=== PATIENT | male | born 1940 | race Caucasian/White ===

== ENCOUNTER 2018-10-30 16:15 | Inpatient (IN) ==
[2018-10-30 16:39] LABS: EOS# 0.06 X1000 (0.0-0.7); EOS% 0.8 % (0.0-10.0); HEMATOCRIT 47.4 % (42.0-52.0); HEMOGLOBIN 15.9 g/dL (14.0-18.0); LYMPH# 0.42 X1000 (1.2-3.4); LYMPH% 5.4 % (20.5-51.1); MCH 32.4 PG (27-31); MCHC 33.5 g/dL (33-37); MCV 96.7 FL (81-99); MONO# 0.08 X1000 (0.11-0.59); MPV 10.6 FL (7.4-10.4); NEUT# 7.26 X1000 (1.4-6.5); NEUT% 92.8 % (42.2-75.2); PLT 114 X1000 (130-400); RDW 12.3 % (11.5-14.5); WBC 7.82 X1000 (4.8-10.8)
[2018-10-30 16:46] LABS: INR 0.96; PROTIME 13.5 Seconds (11.0-16.0); PTT 23.8 Seconds (22.3-41.8)
[2018-10-30] MEDS ORDERED: NS 1,000 ML IV ONE ×3 (16:49→16:51)
[2018-10-30 16:54] LABS: ALB/GLOB RATIO 2.4; ALBUMIN 4.8 g/dL (3.5-5.0); CALCIUM 9.5 mg/dL (8.8-10.2); CREATININE 1.2 mg/dL (0.7-1.2); POTASSIUM 4.5 mmol/L (3.5-5.1); TOTAL BILIRUBIN 1.68 mg/dL (0.20-1.00); TOTAL PROTEIN 6.8 g/dL (6.3-8.3)
[2018-10-30] MEDS ORDERED: ROCEPHIN 1 GM in NS 50 ML IV ONE (17:00)
[2018-10-30 17:07] LABS: ALLEN TEST YES; BE -1.9 mmoll (-3.0-3.0); BLOOD TYPE ARTERIAL; HCO3-(ACT) 23.4 mmoll (20.0-26.0); METHB 1.5 % (0.0-1.5); O2(CT) 19.9 mL/dL (15.0-23.0); O2HB 94.4 % (95.0-99.0); PCO2(98.6) 30 mmHg (35-45); PO2(98.6) 75 mmHg (60-100); SAMPLE BLOOD; SAO2 97.5 % (95.0-100.0); pH(98.6) 7.45 (7.35-7.45)
[2018-10-30 17:08] LABS: MODALITY CANNULA
--- NOTE | 2018-10-30 17:21 | Diag Imaging Result Doc PS360 ---
EXAM: CHEST-1 VIEW HISTORY: sob, possible sepsis TECHNIQUE: Chest single view COMPARISON: None. FINDINGS: The lungs are well expanded. The heart is mildly prominent although this is a portable upright exam. The vessels are not distended. Questionable medial right basilar infiltrate. No effusion identified. IMPRESSION: Questionable small right basilar infiltrate. Follow-up PA and lateral recommended Electronically signed by Chris lAex 10/30/2018 5:19 PM
[2018-10-30 17:32] LABS: URINE SOURCE CLEAN CATCH
[2018-10-30 17:45] LABS: BILIRUBIN URINE NEGATIVE (NEGATIVE); BLOOD URINE SMALL (NEGATIVE); COLOR YELLOW; GLUCOSE URINE NEGATIVE (NEGATIVE); KETONE URINE NEGATIVE (NEGATIVE); LEUKOCYTES URINE SMALL (NEGATIVE); NITRITE URINE NEGATIVE (NEGATIVE); PH URINE 5.5; PROTEIN URINE TRACE mg/dL (NEGATIVE); TURBIDITY URINE CLEAR (CLEAR); UROBILINOGEN URINE NORMAL (NORMAL)
[2018-10-30 17:46] LABS: UR EPITHELIAL CELLS <10 /HPF (<10); URINE BACTERIA NEGATIVE /HPF; URINE RBC <10 /HPF (<10); URINE WBC 20-40 /HPF (<10)
--- NOTE | 2018-10-30 18:03 | Diag Imaging Result Doc PS360 ---
EXAM: CT HEAD W/O CONTRAST HISTORY: ams syncope TECHNIQUE: CT head without contrast COMPARISON: None. FINDINGS: Motion degrades image quality. No parenchymal hemorrhage. No epidural or subdural hematoma. No subarachnoid hemorrhage. There is atrophy. No mass identified on this noncontrasted exam. No hydrocephalus. No sinus opacification. IMPRESSION: No hemorrhage. There is atrophy This exam was performed using automated exposure control, adjustment of mA or kV according to patient size, and/or use of iterative reconstruction technique. Electronically signed by Chris Alex 10/30/2018 6:01 PM
--- NOTE | 2018-10-30 18:25 | PROVIDER DOCUMENTATION ---
This chart was entered by Flavia Shah Scribe, acting as scribe for Rubén Haley MD. HPI-Respiratory General - General Chief Complaint: Weakness Stated Complaint: CHEST PAIN Time Seen by Provider: 10/30/18 16:43 Source: patient Allergies/Adverse Reactions: Patient Allergies Allergy/AdvReac Type Severity Reaction Status Date / Time No Known Allergies Allergy Verified 02/23/16 00:05 Home Medications: Home Medication List Medication Instructions Recorded Confirmed Last Taken Type ATORVAstatin [Lipitor] 10 mg PO QHS 02/23/16 02/23/16 02/21/16 21:00 History Darifenacin E.r. [Enablex] 7.5 mg PO QHS 02/23/16 02/23/16 02/21/16 21:00 History Potassium Citrate E.r. [Urocit-K] 10 meq PO QHS 02/23/16 02/23/16 02/21/16 21: 00 History Divalproex E.r. [Depakote ER] 1,000 mg PO QHS #60 tablet 03/15/16 Unknown Rx Hydrocortisone 2.5% Cream 1 applicatn LA BID PRN PRN #1 tube 03/15/16 Unknown Rx [Anusol-Hc Cream] Melatonin 5 mg PO QHS #30 tablet 03/15/16 Unknown Rx Risperidone [Risperdal] 1 mg PO QAM #30 tablet 03/15/16 Unknown Rx Risperidone [Risperdal] 6 mg PO QHS #60 tablet 03/15/16 Unknown Rx Trazodone [Desyrel] 50 mg PO QHS #30 tablet 03/15/16 Unknown Rx - History of Present Illness-Resp Nature of Presenting Problem: 78 yom presents to the ed with multiple complaints. pt sts was on a bus traveling today and felt well up till this afternoon. pt was riding on the bus when he became sob, weakness and tremors. pt has mild confusion on exam. pt is nontoxic in appearance the bus the pt was on dropped him off at the er and drove away Quality of Pain: reports: none (c/o weakness) Severity in ED: reports: moderate Onset/Duration: reports: this afternoon Timing: reports: still present Context: reports: other (was riding on a bus today) Exposure: reports: unknown cause Cough Quality/Degree: reports: no cough Episode Frequency: no prior episodes Current Respiratory Medication Therapy: Initiated see nurses note Modifying Factors: improves with: nothing Associated Symptoms: reports: fever/chills (102.3), shortness of breath, other ( weakness). denies: chest pain/soreness, cough, dizziness, headache Similar Symptoms Previously?: No Recently seen or treated by another doctor?: No Review of Systems - Adult - REVIEW OF SYSTEMS - ADULT Constitutional: reports: see HPI, chills, fever (102.3) Eyes: reports: no symptoms reported Ears, Nose, Mouth & Throat: reports: no symptoms reported Cardiovascular: denies: chest pain, palpitations Respiratory: reports: shortness of breath. denies: cough, wheezing Gastrointestinal: denies: abdominal pain, diarrhea, difficulty swallowing, nausea, vomiting Genitourinary: reports: no symptoms reported Musculoskeletal: reports: see HPI, muscle weakness. denies: back pain, neck pain Integumentary: reports: no symptoms reported Neurological: reports: see HPI, tremors, other (confused). denies: dizziness/ vertigo, headache/migraines, slurred speech Psychiatric: reports: no symptoms reported Endocrine: reports: no symptoms reported Hematologic/Lymphatic: reports: no symptoms reported Allergic/Immunologic: reports: no symptoms reported All Other Systems: Reviewed and Negative Past History - Adult - PAST MEDICAL HISTORY-ADULT Review of Records: reports: Old Records Reviewed, Nursing Assessment Review, Medications Reviewed, Social history reviewed & non-contributory. Major Childhood Illnesses: reports: denies history Cardiovascular: reports: denies history Respiratory: reports: denies history Gastrointestinal: reports: denies history Genitourinary: reports: denies history Musculoskeletal: reports: denies history Neurological: reports: denies history Endocrine/Immune: reports: denies history Other Conditions: reports: denies history - PRIOR SURGERIES/PROCEDURES Surgical/Procedure History: reports: reviewed, not pertinent - IMMUNIZATION STATUS Childhood Immunizations: See Nurse Assessment Flu Vaccine: See Nurse Assessment - FAMILY HISTORY Family History: reviewed, not pertinent - SOCIAL HISTORY Smoking: quit greater than 1 year Substance Use: none/never Alcohol Use Frequency: never Living Situation: family Physical Exam-General - PHYSICAL EXAM-ADULT Initial Vital Signs Reviewed: Yes - CONSTITUTIONAL General Appearance: lethargic, slow to respond - EYES Eyes: pink conjunctivae - HEAD, EARS, NOSE, MOUTH & THROAT HENMT: moist mucous membranes - NECK Neck: full range of motion - RESPIRATORY Respiratory: chest non-tender, lungs clear, normal breath sounds. negative: crackles, rales, rhonchi, stridor, wheezing - CARDIOVASCULAR Cardiovascular: normal peripheral pulses, regular rate, rhythm, no edema, tachycardia - GASTROINTESTINAL (ABDOMEN) Abdominal Exam: normal bowel sounds, non tender, soft, no organomegaly. negative: guarding, rigid, rebound, tenderness - LYMPHATIC Lymphatic: no adenopathy - MUSCULOSKELETAL Extremity: non-tender, no pedal edema. negative: normal gait Peripheral Pulses: radial (R): 2+, radial (L): 2+, dorsalis-pedis (R): 2+, dorsalis-pedis (L): 2+ - SKIN Integumentary: normal color, normal turgor, warm/dry - NEUROLOGIC Neurologic: grossly normal, no motor/sensory deficits, abnormal cerebellar tests , abnormal water plant pump operator II-XII, abnormal gait, negative romberg's sign. negative: facial droop, focal weakness, motor weakness, sensory deficit - PSYCHIATRIC Psych/Mental Status: normal mood/affect, normal thought content, normal thought process, oriented x 3 Progress - PLAN OF CARE/RESULTS Progress/Plan/Lab Results: Vital Signs - 8 hr 10/30/18 16:25 Temperature 102.3 F H Pulse Rate 107 H Respiratory Rate 20 Blood Pressure 132/55 O2 Sat by Pulse Oximetry 96 Laboratory Results - last 24 hr 10/30/18 10/30/18 10/30/18 16:28 16:28 16:28 WBC 7.82 RBC 4.90 Hgb 15.9 Hct 47.4 MCV 96.7 MCH 32.4 H MCHC 33.5 RDW Std Deviation 12.3 Plt Count 114 L MPV 10.6 H Immature Gran % (Auto) 0.0 Neut % (Auto) 92.8 H Lymph % (Auto) 5.4 L Bryan % (Auto) 1.0 L Eos % (Auto) 0.8 Baso % (Auto) 0.0 Immature Gran # (Auto) 0.00 Neut # (Auto) 7.26 H Lymph # (Auto) 0.42 L Bryan # (Auto) 0.08 L Eos # (Auto) 0.06 Baso # (Auto) 0.00 PT 13.5 INR 0.96 PTT (Actin FS) 23.8 Specimen Type Sample Site pH pCO2 pO2 HCO3 Base Excess Oxyhemoglobin ABG O2 Sat (Calculated) ABG O2 Saturation ABG Carboxyhemoglobin ABG Methemoglobin Robbie Test A-a O2 Difference Total Hemoglobin Lactate Liter Flow Blood Gas Modality FiO2 % Sodium 136 Potassium 4.5 Chloride 97 L Carbon Dioxide 24 L Anion Gap 15 BUN 19 Creatinine 1.2 Estimated GFR/1.73 m2 59 BUN/Creatinine Ratio 16 Glucose 136 H POC Glucose Calculated Osmolality 276 Calcium 9.5 Total Bilirubin 1.68 H AST 20 ALT 18 Alkaline Phosphatase 81 Creatine Kinase 97 Troponin T Total Protein 6.8 Albumin 4.8 Globulin 2.0 Albumin/Globulin Ratio 2.4 Plasma Lactate Urine Source Urine Color Urine Turbidity Urine pH Ur Specific [place] Urine Protein Ur Glucose (Stick) Ur Ketones (Stick) Urine Blood Urine Nitrite Urine Bilirubin Urobilinogen Dipstick Urine Leukocytes Urine WBC (Auto) Urine RBC (Auto) U Epithel Cells (Auto) Urine Bacteria (Auto) 10/30/18 10/30/18 10/30/18 16:28 16:28 16:55 WBC RBC Hgb Hct MCV MCH MCHC RDW Std Deviation Plt Count MPV Immature Gran % (Auto) Neut % (Auto) Lymph % (Auto) Bryan % (Auto) Eos % (Auto) Baso % (Auto) Immature Gran # (Auto) Neut # (Auto) Lymph # (Auto) Bryan # (Auto) Eos # (Auto) Baso # (Auto) PT INR PTT (Actin FS) Specimen Type ARTERIAL Sample Site R RADIAL pH 7.45 pCO2 30 L pO2 75 HCO3 23.4 Base Excess -1.9 Oxyhemoglobin 94.4 L ABG O2 Sat (Calculated) 19.9 ABG O2 Saturation 97.5 ABG Carboxyhemoglobin 1.80 ABG Methemoglobin 1.5 Robbie Test YES A-a O2 Difference 87.0 Total Hemoglobin 15.0 Lactate 2.90 H Liter Flow 2.0 Blood Gas Modality CANNULA FiO2 % 28.0 Sodium Potassium Chloride Carbon Dioxide Anion Gap BUN Creatinine Estimated GFR/1.73 m2 BUN/Creatinine Ratio Glucose POC Glucose Calculated Osmolality Calcium Total Bilirubin AST ALT Alkaline Phosphatase Creatine Kinase Troponin T < 0.010 Total Protein Albumin Globulin Albumin/Globulin Ratio Plasma Lactate 3.6 H Urine Source Urine Color Urine Turbidity Urine pH Ur Specific [place] Urine Protein Ur Glucose (Stick) Ur Ketones (Stick) Urine Blood Urine Nitrite Urine Bilirubin Urobilinogen Dipstick Urine Leukocytes Urine WBC (Auto) Urine RBC (Auto) U Epithel Cells (Auto) Urine Bacteria (Auto) 10/30/18 10/30/18 16:56 17:20 WBC RBC Hgb Hct MCV MCH MCHC RDW Std Deviation Plt Count MPV Immature Gran % (Auto) Neut % (Auto) Lymph % (Auto) Bryan % (Auto) Eos % (Auto) Baso % (Auto) Immature Gran # (Auto) Neut # (Auto) Lymph # (Auto) Bryan # (Auto) Eos # (Auto) Baso # (Auto) PT INR PTT (Actin FS) Specimen Type Sample Site pH pCO2 pO2 HCO3 Base Excess Oxyhemoglobin ABG O2 Sat (Calculated) ABG O2 Saturation ABG Carboxyhemoglobin ABG Methemoglobin Robbie Test A-a O2 Difference Total Hemoglobin Lactate Liter Flow Blood Gas Modality FiO2 % Sodium Potassium Chloride Carbon Dioxide Anion Gap BUN Creatinine Estimated GFR/1.73 m2 BUN/Creatinine Ratio Glucose POC Glucose 134 H Calculated Osmolality Calcium Total Bilirubin AST ALT Alkaline Phosphatase Creatine Kinase Troponin T Total Protein Albumin Globulin Albumin/Globulin Ratio Plasma Lactate Urine Source CLEAN CATCH Urine Color YELLOW Urine Turbidity CLEAR Urine pH 5.5 Ur Specific [place] 1.020 Urine Protein TRACE A Ur Glucose (Stick) NEGATIVE Ur Ketones (Stick) NEGATIVE Urine Blood SMALL A Urine Nitrite NEGATIVE Urine Bilirubin NEGATIVE Urobilinogen Dipstick NORMAL Urine Leukocytes SMALL A Urine WBC (Auto) 20-40 A Urine RBC (Auto) <10 U Epithel Cells (Auto) <10 Urine Bacteria (Auto) NEGATIVE Orders Category Date Time Status Cardiac Monitoring DIRECTED Care 10/30/18 16:28 Active IV Insertion ORDERED Care 10/30/18 16:28 Active Notify MD of + Sepsis Screen NOW Care 10/30/18 16:28 Active Notify Physician As Ordered Care 10/30/18 16:28 Active CHEST-1 VIEW [RAD] Stat Exams 10/30/18 16:[address] HEAD W/O CONTRAST [CT] Stat Exams 10/30/18 16:43 Completed ABG [RESP] Routine Lab 10/30/18 16:55 Completed BLOOD CULTURE [BLDCUL] Stat Lab 10/30/18 17:01 Results CBC WITH DIFF [HEME] Stat Lab 10/30/18 16:28 Completed CK PROFILE [SP CHEM] Stat Lab 10/30/18 16:28 Completed COMPREHENSIVE METABOLIC PANEL [CHEM] Stat Lab 10/30/18 16:28 Completed LACTATE, PLASMA [CHEM] Lab 10/30/18 19:30 Uncollected LACTATE, PLASMA [CHEM] Lab 10/30/18 22:30 Uncollected LACTATE, PLASMA [CHEM] Q3H Lab 10/30/18 16:28 Completed PROTIME WITH INR [COAG] Stat Lab 10/30/18 16:28 Completed PTT [COAG] Stat Lab 10/30/18 16:28 Completed TROPONIN T Stat Lab 10/30/18 16:28 Completed URINALYSIS W/POSS RFLX CULT [URINALYSIS] Stat Lab 10/30/18 17:20 Completed URINE CULTURE [RM] Routine Lab 10/30/18 18:09 Received 0.9% Sodium Chloride Inj [Ns] 1,000 ml Med 10/30/18 16:49 Discontinued IV 999 mls/hr 0.9% Sodium Chloride Inj [Ns] 1,000 ml Med 10/30/18 16:50 Discontinued IV 999 mls/hr 0.9% Sodium Chloride Inj [Ns] 1,000 ml Med 10/30/18 16:51 Discontinued IV 999 mls/hr CefTRIAXONE [Rocephin] 1 gm Med 10/30/18 17:00 Discontinued 0.9% Sodium Chloride Inj [Ns] 50 ml IV NOW Oxygen Device Stat Oth 10/30/18 16:28 Active Result Diagrams: 10/30/18 16:28 10/30/18 16:28 - REASSESSMENT Reassessment #1 Time Reassessed: 17:18 (dr at bedside) Status: unchanged - EKG 1 Time of EKG reading by physician:: 16:23 EKG Read and Signed by:: Rubén Haley EKG Interpretation (*Must complete 3 of following elements*): Normal (borderline ) Rate: 106 Rhythm: sinus tachycardia [place]: normal QRS: other (possible left atrial enlargement) LA Interval: normal ST Wave: normal - CONSULTS/PCP/HOSPITALIST Notification #1 *Consult/PCP/Hospitalist*: Dr wang Time Discussed: 18:00 Consult Disposition: Admit Departure - Departure Date of Disposition Decision: 10/30/18 Time of Disposition Decision: 18:22 DIAGNOSIS: Altered mental status Disposition: HOME 01 Certified Medical Emergency: Emergent Condition: Fair Referrals and Follow-Ups: Rubén Keating [Primary Care Provider] - - Critical Care Note This patient required my direct & personal management of CC.: Yes Total Time (mins): 42 Critical Care Statement: This patient required my direct personal management to treat or rule out processes, the absence of which, could potentiallly result in sudden, clinically significant life or limb threatening deterioration. Attestation - Physician/ FLOR Attestation Patient care was provided by Advanced Practice Provider:: No The physician spent face to face time with patient:: Yes Advanced Practice Provider documentation review:: Supervising physician onsite and consulted in the evaluation and care of this patient. The physician did have a face to face encounter with the patient. This chart was documented by the indicated scribe, (Flavia Shah Scribe) and accurately reflects the services I performed and decisions made by me, Rubén Haley MD, as attested by the provider's signature.
[2018-10-30] MEDS ORDERED: NS 500 ML ONE (18:54)
[2018-10-30] MEDS: ZITHROMAX 500 MG/NS 500 MG/250 ML IVPB IV SCH (19:00)
[2018-10-30] MEDS ORDERED: NS 500 ML IV ONE (19:03)
[2018-10-30] MEDS: DUONEB (A & A) INH SCH ×2 (19:15→23:55)
[2018-10-30] MEDS: TYLENOL PO PRN (21:00)
[2018-10-30] MEDS: NS 1,000 ML IV SCH (21:10)
[2018-10-31] MEDS: TYLENOL PO PRN ×2 (00:56→20:26)
--- NOTE | 2018-10-31 01:59 | HISTORY AND PHYSICAL ---
PRIMARY CARE PROVIDER: Juan Alberto Keating MD, in [place]. ARABIC PROFESSOR: Jt Sampson MD, in [place]. NEUROLOGIST: Jesus Nicholas M.D., in [place]. CHIEF COMPLAINT: Weakness, rigors, problems with expressing himself, shortness of breath, nausea. HISTORY OF PRESENT ILLNESS: Mr. Gupta is a 78-year-old male who carries a past medical history diagnosis of bipolar disorder, type 1, hypercholesterolemia, history of kidney stones, urinary incontinence, NM 2 years ago with a stent to the LAD, dementia. Per he was started on Namenda. He was started out at 5 mg over a month ago and increased to the max dose at 20. He has been on that dose for about 2 weeks. When I tried to question the patient on today's events it was hard for him to express himself and get his words out. He got slightly agitated, and what he was saying really did not make any sense. He became somewhat flustered. His took over and stated that they went on a bus tour to [facility] today in [place]. They listen to some lectures. They had a big lunch. They did minimal walking, and then when it was time ago he stated he needed to sit down. When they brought the tour bus around and he had to have help on the bus. He started staggering. He had chills and rigors. He felt like he "lost all control." He felt nauseated, and by the time he got to the ED he was totally in coherent. He was found to have a temperature of 102.3 degrees. He was tachycardic, respiratory rate in the 20s, and was found to have a lactate of 2.90, and then a serum lactate of 3.6. His urinalysis was negative. He had no white count. His head CT showed no hemorrhage, showed atrophy. Chest x-ray showed a questionable small right basilar infiltrate. Recommend followup PA and lateral. Per the patient all his symptoms had subsided except for not being able to fully express himself when placed under questioning, however, says when it is just her and family in the room he is able to converse with them normally and he is back to his old self. He does not usually get easily frustrated or able to express himself when being questioned. In the ED he was started on a sepsis protocol. He was given fluid boluses, started on IV antibiotics, checked blood cultures. Patient does not have a toxic appearance. We will go ahead and treat with antibiotics. Recheck a chest x-ray in the a.m., and given his symptoms of expression we will do a neurology consult. Get a brain MRI and follow up with normal CVA workup. REVIEW OF SYSTEMS: A 14 point review of systems was completely negative except for those mentioned in HPI. He denied chest pain. He denied vomiting, diarrhea. No headache. No dizziness. PAST MEDICAL HISTORY: 1. Dementia. 2. Bipolar disorder type 1. 3. Hypercholesterolemia. 4. History of kidney stones. 5. Urinary incontinence. 6. NM 2 years ago with a stent to the LAD and 100% blockage. PAST SURGICAL HISTORY: 1. Prostate surgery. 2. Heart cath to a stent to the LAD. It was 100% occluded. It was done by Dr. Sampson. 3. 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 4. Right foot surgery. SOCIAL HISTORY: He is . Supportive and family at bedside. 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 He is a [place] . He quit smoking over 50 years ago. No alcohol or illicit drugs. FAMILY HISTORY: Had a father of an NM at the age of 57. Mother of congestive heart failure the age of 89. She had Alzheimer dementia as well. ALLERGIES: No known drug allergies. HOME MEDICATIONS: Have not been reconciled. PHYSICAL EXAM: VITAL SIGNS: Temperature is 102.3 degrees, heart rate 107, respirations 20, blood pressure 132/55, O2 is 96% on room air. GENERAL: Mr. Gupta is a 78-year-old male who is lying on the stretcher in no acute distress. When asked questions he did become somewhat agitated that he could not get his words out, and when he did he did not make much sense, but when he was not directly being questioned and talking to his family he was able to speak appropriately. HEENT: Atraumatic, normocephalic. LARRY. NECK: Supple. Trachea midline. CV: S1, S2 appreciated. No murmurs, gallops, or rubs noted. No JVD. Bilateral pedal pulses are palpable. No lower extremity edema. GI: Soft, nontender, nondistended. Positive bowel sounds 4 quads. EXTREMITIES: No clubbing, no cyanosis. PULMONARY: Bilateral breath sounds clear to auscultation. NEURO: The patient was able to tell me his name, date of , the year, where he was at. He follows commands. Moved all extremities well. Smile was symmetrical. Tongue was midline. There was no deficit in his shoulder shrug. There was no pronator drift. Upper and lower extremity strength was 5/5. Did not assess gait. SKIN: Appears to be warm, dry and intact. DIAGNOSTIC DATA: Chest x-ray questionable small bibasilar infiltrate. Head CT no hemorrhage. There is atrophy. EKG is pending. LABORATORY DATA: White count 7, hemoglobin and hematocrit 15 and 47, platelet count is 114,000. Sodium 136, potassium 4.5, BUN 15, creatinine 1.2 blood glucose was 136, total bilirubin was 1.68, plasma lactate was 3.6. Urine was negative. ASSESSMENT AND PLAN: 1. Probable sepsis. The patient did have an elevated lactate, tachycardic, febrile, came in with complaints of rigors and weakness. He was treated with 3L of fluid boluses. The family felt like he improved after he received IV fluids and antibiotics. We will continue to trend his lactate, give him Tylenol for his fever, however, he does not have a toxic appearance. Chest x-ray shows questionable right basilar infiltrate. 2. Probable right basilar infiltrate. We will continue with IV fluids, IV antibiotics, bronchodilators, aggressive pulmonary toilet. Recheck a chest x-ray in the a.m. 3. Transient ischemic attack versus cerebrovascular accident versus altered mental status versus progressing or worsening of dementia versus toxic encephalopathy. The patient states that he felt like he lost all control and again he was having a hard time expressing himself, and when he would speak he stated it did not make logical sense. We will also get neurology involved, take a look at his home medications once they have been reconciled. Check the regular echocardiogram, carotid Dopplers, and brain MRI MRA in a.m. We will do frequent neuro checks. 4. Dementia history. We will continue his home medications when reconciled. 5. Bipolar disorder type 1. Continue home medications when reconciled. 6. Hypercholesterolemia. We will continue with statin. 7. History of kidney stones. Aware. 8. Urinary incontinence. 9. Myocardial infarction 2 years ago with a stent to the LAD. I will continue home medications again when they have been reconciled. Will continue with aspirin. 10. Further recommendations to follow laboratory data, physician evaluation, and diagnostic data. Dictated by BELKYS Espinoza for Wilfrid Acosta MD cc: MD Juan Alberto Figueroa, MD Jesus Nicholas I have seen and examined Mr Gupta today. was at bedside. I have also reviewed his labs and imagining studies. Mr Gupta presents with acute onset of febrile illness and AMS. Xray reports possible pneumonia. I agree with the above HPI and the plan reflects my opinion discussed with the SR. LOGISTICS ANALYST. ALEKSANDR
[2018-10-31] MEDS ORDERED: DEMEROL IV ONE ×2 (02:24→23:44)
[2018-10-31] MEDS ORDERED: TORADOL IV ONE ×2 (02:24→23:44)
[2018-10-31] MEDS: DUONEB (A & A) INH SCH ×6 (02:30→23:12)
[2018-10-31] MEDS: ZOFRAN IV PRN (02:34)
[2018-10-31 06:41] LABS: BASO# 0.01 X1000 (0.0-0.2); BASO% 0.1 % (0.0-0.8); EOS# 0.11 X1000 (0.0-0.7); EOS% 1.1 % (0.0-10.0); HEMATOCRIT 39.4 % (42.0-52.0); LYMPH# 0.34 X1000 (1.2-3.4); LYMPH% 3.3 % (20.5-51.1); MCH 32.7 PG (27-31); MONO# 0.66 X1000 (0.11-0.59); MONO% 6.5 % (1.7-9.3); MPV 11.2 FL (7.4-10.4); NEUT# 8.94 X1000 (1.4-6.5); PLT 89 X1000 (130-400); RBC 3.98 XMIL (4.7-6.1); RDW 12.5 % (11.5-14.5); WBC 10.16 X1000 (4.8-10.8)
--- NOTE | 2018-10-31 07:12 | Diag Imaging Result Doc PS360 ---
EXAM: CT THORAX/ABD/PELVIS W/CON 10/31/2018 HISTORY: infection TECHNIQUE: This exam was performed using automated exposure control, adjustment of mA or kV according to patient size, and/or use of iterative reconstruction technique. COMMENT: Thorax: There is hazy opacity in the perihilar portion of the right upper, and lower lobes. As there is no similar opacity on the left side this is likely to be due to an early or mild pneumonia. There is a small pleural-based nodule present in the right upper lobe on image 39 measuring less than 5 mm in diameter. Two additional tiny nodules are present at the level of the minor fissure anteriorly on image 55 which are probably nodes. There is a tiny nodule in the right lower lobe on image 65. There are atelectatic opacities present in the costophrenic sulci posteriorly bilaterally. There is a 5 mm nodule in the lingula on image 69 there is a somewhat groundglass nodule adjacent to the pleura in the superior segment of the left lower lobe on image 47 which measures less than 5 mm. There is a 5 mm sized nodule on image 43 in the superior segment of the left lower lobe. There is no evidence of significant adenopathy. There is dense calcification in the left coronary artery. There are no abnormal fluid collections. There is no evidence of aortic aneurysm or dissection. There are spondylotic changes in the visualized portion of the cervical spine as well as the thoracic spine. ABDOMEN: There are multiple calcified granulomata in the spleen and a few in the liver. There is no evidence of cholelithiasis. There may be a small stone in the lower pole of the right kidney. There are some small cortical cysts bilaterally. There is no evidence of hydronephrosis. The adrenal glands are not enlarged. The pancreas is unremarkable. There is some mesenteric panniculitis. There are a few prominent retroperitoneal nodes most notably at the level of the left renal pedicle there is a node measuring over 10 mm. There is no evidence of abdominal aortic aneurysm. The mesenteric and renal arteries are patent. The small bowel is not distended. There is stool throughout much of the colon. Pelvis: There is a densely calcified nodule adjacent to the cecum. The appendix is not clearly identifiable but there is no evidence of appendicitis. There is diverticulosis in the sigmoid colon without evidence of diverticulitis. The urinary bladder is not distended. There are fat-containing inguinal hernias bilaterally. The prostate gland is somewhat enlarged and inhomogeneous with a calcification near the prostatic urethra. It measures 5.6 cm transversely and 4.3 cm in AP dimension. There is no free fluid. There are degenerative disc changes in the lumbar spine. There is ankylosis of the sacroiliac joints. No evidence of acute bony abnormality is present. IMPRESSION: 1. Mild right upper and lower lobe pneumonia. Multiple nonspecific pulmonary nodules bilaterally none of which exceed 5 mm in size. Bibasilar atelectasis. 2. Mild constipation. Mild mesenteric panniculitis. Diverticulosis coli. 3. Enlarged prostate. No evidence of obstructive uropathy. The possibility of urinary tract infection cannot be excluded on the basis of this study. Electronically signed by Angel Laboy 10/31/2018 7:10 AM
--- NOTE | 2018-10-31 07:37 | EKG Report ---
Test Performed on : 10/30/2018 4:23:37 PM Test Reason : follow up Blood Pressure : / mmHG Vent. Rate : 106 BPM Atrial Rate : 106 BPM P-R Int : 166 ms QRS Dur : 072 ms QT Int : 330 ms P-R-T Axes : 041 031 057 degrees QTc Int : 438 ms Sinus tachycardia. Possible Left atrial enlargement Borderline ECG When compared with ECG of 22-JUN-2011 14:38, premature atrial complexes. are no longer present Vent. rate has increased BY 44 BPM Non-specific change in ST segment in Lateral leads Unconfirmed Result
[2018-10-31 07:42] LABS: MONO 4 % (1-9); SEGS 94 % (42-75)
[2018-10-31] MEDS: ASPIRIN PO SCH (09:28)
[2018-10-31] MEDS: VITAMIN B-12 PO SCH (09:28)
[2018-10-31] MEDS: NAMENDA PO SCH ×2 (09:29→20:26)
[2018-10-31] MEDS: ZEBETA PO SCH ×2 (09:29→09:41)
--- NOTE | 2018-10-31 10:35 | Diag Imaging Result Doc PS360 ---
EXAM: MRA BRAIN W/O CONTRAST 10/31/2018 HISTORY: stroke TECHNIQUE: 3-D [id number] COMMENT: Only the proximal portions of the anterior cerebral arteries are visible. There is some narrowing of the right A1 segment. The peripheral branches of the middle cerebral arteries are also not well demonstrated. 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 There is no evidence of aneurysm. IMPRESSION: Generally poor visualization of the peripheral branches of the middle cerebral arteries and distal anterior cerebral arteries. Hypoplasia of both P1 segments. Electronically signed by Angel Laboy 10/31/2018 10:32 AM
--- NOTE | 2018-10-31 10:38 | Diag Imaging Result Doc PS360 ---
EXAM: MRI BRAIN W/WO CONTRAST 10/31/2018 HISTORY: stroke TECHNIQUE: T1 sagittal, axial and post gadolinium-enhanced FSPGR axial with coronal reformation, axial T2, FLAIR, DWI and coronal gradient echo. COMMENT: There is some motion artifact particularly on the axial T1 images. There is no evidence of restricted diffusion. There is no evidence of mass effect, bleed, abnormal extra-axial fluid collection, or hydrocephalus. There is no evidence of abnormal gadolinium enhancement. No significant increased T2-weighted signal intensity is present. IMPRESSION: No evidence of acute intracranial disease. Electronically signed by Angel Laboy 10/31/2018 10:36 AM
--- NOTE | 2018-10-31 13:13 | PROGRESS NOTE ---
DATE: 10/31/2018 SUBJECTIVE: This morning, Mr. Gupta refers to be doing a lot better. He got admitted yesterday because of transient episode of altered mental status and fever. Brought in x- ray, did show suggestion of pneumonia. His blood cultures have been 2/2 positive for gram- negative kristy. OBJECTIVE: Vital signs: This morning blood pressure is 100/44, pulse is 80, respirations 18, temperature 97.6. General: Mr. Gupta is a 78-year-old, gentleman. He was in bed. Not seemingly distressed. HEENT: Mucosa is pink and moist. Anicteric. Acyanotic. Neck: Supple. Chest: Good air entry bilateral. There are some crepitations posteriorly. Cardiovascular: Regular rate and rhythm. No murmurs, no rubs, no gallops. Abdomen: Soft, nontender. Bowel sounds present. Extremities: No pedal edema. DIGITAL SOLUTION ARCHITECT: Patient was awake, alert, and oriented. LABORATORY DATA: WBC is 10.16, hemoglobin is 12.0 platelet count of 89. Chemistry is also reviewed. The patient's plasma lactate went down to 2.5. No chemistry this morning. So far, patient blood culture showing 2/2 gram-negative rods. DIAGNOSTIC STUDIES: A CT scan of the chest, abdomen, and pelvis yesterday did show mild right upper and lower lobe pneumonia. There was also mild constipation with mild mesenteric panniculitis. There is an enlarged prostate. No evidence of obstructive uropathy and possibility of urinary tract infection could not be excluded. ASSESSMENT AND PLAN: 1. Septic shock. The patient ran a couple episodes of hypotension, but his map has been relatively fine and his blood pressure this morning was okay. He has not needed pressors. He responded well to IV fluids. 2. Gram-negative kristy bacteremia, unsure the source not. We are not sure if this is from the pneumonia or is from urinary tract infection. Will be pending the Infectious disease and sensitivity. The patient has a remote history of plates in the right ankle which could be seeded from the bacteremia. I will consult Infectious disease to evaluate and determine length of therapy. 3. Right upper and lower lobe pneumonia. We will continue with the current azithromycin and Rocephin combo. 4. Mild constipation. We will continue with bowel regimen. 5. History of benign prostatic hypertrophy. No evidence of obstructive uropathy. The patient refers to have incontinence every now and then. There is a potential that the gram-negative kristy could be coming from the genitourinary tract. Urine culture is pending. We will follow up accordingly. cc: Wilfrid Acosta MD MTDD
--- NOTE | 2018-10-31 13:41 | CONSULTATION ---
DATE OF CONSULTATION: 10/31/2018 HISTORY OF PRESENT ILLNESS: Mr. Gupta had some possible trouble finding his words associated with shaking approximately 24 hours ago. He seems completely recovered now. History from the patient is that he was on a bus tour, felt ill, fatigued, weak all over. He developed some generalized shaking with teeth clenched. He sat on the bus and later seemed to have difficulty standing. was next to him and spoke to him, and he did not answer. She had the impression that he either could not or would not talk. Mr. Gupta remembers some of this, but may not have complete memory of all events. There was never any focal neurologic feature. There was never unconsciousness or unresponsiveness. He did not have headache. He did not fall. He reports no prior similar episode. He had a prior period of generalized shaking and possible parkinsonian syndrome, which resolved after medication adjustments. He is followed by Dr. Nicholas in [place]. DIAGNOSTIC AND LABORATORY DATA: Initial noncontrast CT, later brain MRI with and without contrast, and brain MRA, all unremarkable. Lab showed mild anemia and mildly elevated blood sugars. Blood cultures are positive. PHYSICAL EXAMINATION: Temperature was 102.3 degrees, later 103.3 ( approximately 10 hours ago), and he is afebrile now. On exam, he is awake, alert, attentive, appropriate, oriented, reasonably cheerful. Speech is not dysarthric. Language function is intact on bedside testing. He did not have any word-finding problems during my time at the bedside. I did not test his cognitive function further. Head and neck are unremarkable. There is no meningismus. Visual rivera are full tested grossly by confrontational finger counting. Extraocular movements are full. Facial motility is symmetric. Tongue is midline. Palate is midline. Hearing is good. Shoulder shrug is equal. Strength is normal in the arms and legs. Tone is symmetric in the limbs. I did not test his gait. Reflexes are 1+ at the wrists and ankles symmetrically. Plantar response is silent bilaterally. He reports diminished pinprick appreciation over the right upper leg compared to the left without typical peripheral nerve distribution. He reports equal pinprick appreciation over the right and left palm. IMPRESSION: His history to me sounds like rigor with hard shaking chills, subsequent fever, now recovering. There was never clear focal neurologic feature. History is not certain for language problem. We discussed LP but I don't think that is necessary in light of his recovery to baseline. At this point, I do not think we need to do anything further from neurologic standpoint. After discharge, he will keep followup with Dr. Nicholas. Thanks for asking Neurology to see Mr. Gupta. cc: MD ALEKSANDR Somers III
--- NOTE | 2018-10-31 17:12 | ECHO REPORT ---
ORDER DATE: 10/30/2018 INDICATION FOR PROCEDURE: TIA, stroke, rigors, dyspnea. M-MODE MEASUREMENTS: Left ventricle end diastole: 4.8. Left ventricle end systole: 3.7. Posterior wall: 0.9. Interventricular septum: 1.0. Left atrium: 4.0. Aortic root: 3.2. SUMMARY OF 2-DIMENSIONAL IMAGIN. The study is difficult. 2. Left ventricular function is normal. Ejection fraction estimated at 60%. No wall motion abnormality noted. 3. The right ventricle appears to be normal. 4. The aortic valve looks grossly normal. Color flow mapping unremarkable. 5. The pulmonic valve looks grossly normal. Color flow mapping unremarkable. 6. The tricuspid valve shows a minimal degree of regurgitation. 7. Pulmonary pressure normal, estimated at 22 to 27 mmHg. 8. The mitral valve looks normal with a mild degrees of regurgitation. 9. Pulsed wave Doppler of mitral inflow is normal. 10.Tissue Doppler of septal and lateral mitral annulus averages 9 cm. There is no diastolic dysfunction. 11.There is no pericardial effusion. No masses, no thrombus. 12.The atria did not appear to be dilated. SUMMARY: This echocardiographic study appears to be grossly within normal limits. cc: Lalo Salmeron MD
[2018-10-31] MEDS ORDERED: ROCEPHIN 1 GM in NS 50 ML IV SCH (18:30)
[2018-10-31] MEDS: ZITHROMAX 500 MG/NS 500 MG/250 ML IVPB IV SCH (20:26)
[2018-10-31] MEDS: LIPITOR PO SCH (20:26)
[2018-10-31] MEDS: NS 1,000 ML IV SCH (20:26)
[2018-10-31] MEDS: COENZYME Q10 PO SCH (20:26)
[2018-10-31] MEDS: PATIENT'S OWN MED PO SCH (20:27)
[2018-11-01] MEDS: TYLENOL PO PRN ×3 (00:03→21:26)
[2018-11-01] MEDS: ZOFRAN IV PRN (00:04)
[2018-11-01] MEDS: DUONEB (A & A) INH SCH ×6 (03:12→23:02)
[2018-11-01] MEDS: ZEBETA PO SCH ×2 (03:40→08:17)
[2018-11-01] MEDS: NS 1,000 ML IV SCH (03:41)
[2018-11-01] MEDS ORDERED: DEMEROL IV ONE (04:32)
[2018-11-01 04:54] LABS: BASO# 0.01 X1000 (0.0-0.2); BASO% 0.2 % (0.0-0.8); EOS# 0.01 X1000 (0.0-0.7); EOS% 0.2 % (0.0-10.0); HEMATOCRIT 39.9 % (42.0-52.0); HEMOGLOBIN 13.5 g/dL (14.0-18.0); IMM GRAN# 0.02 X1000 (0.0-0.04); IMM GRAN% 0.4 % (0.0-0.5); LYMPH# 0.43 X1000 (1.2-3.4); LYMPH% 9.3 % (20.5-51.1); MCH 32.9 PG (27-31); MCHC 33.8 g/dL (33-37); MCV 97.3 FL (81-99); MONO# 0.08 X1000 (0.11-0.59); MONO% 1.7 % (1.7-9.3); MPV 10.9 FL (7.4-10.4); NEUT# 4.08 X1000 (1.4-6.5); NEUT% 88.2 % (42.2-75.2); PLT 64 X1000 (130-400); RDW 12.7 % (11.5-14.5); WBC 4.63 X1000 (4.8-10.8)
[2018-11-01 05:21] LABS: CALCIUM 8.7 mg/dL (8.8-10.2); CREATININE 1.2 mg/dL (0.7-1.2); MAGNESIUM 1.6 mg/dL (1.5-2.7); POTASSIUM 4.4 mmol/L (3.5-5.1)
[2018-11-01 06:21] LABS: INR 1.11; PROTIME 15.2 Seconds (11.0-16.0)
[2018-11-01 06:26] LABS: IRON SATURATION 9 %; TIBC 173 ug/dL; TOTAL IRON 15 ug/dL (53-167); UNBOUND IRON 158 ug/dL (112-346)
[2018-11-01 06:56] LABS: FERRITIN 471 ng/mL (30-400)
--- NOTE | 2018-11-01 08:05 | Diag Imaging Result Doc PS360 ---
EXAM: CHEST-1 VIEW 11/01/2018 HISTORY: sepsis protocol TECHNIQUE: AP portable at 0743 COMMENT: The inspiration is slightly less optimal than on 10/30/2018 but otherwise the appearance the chest has not changed significantly. The possibility of mild subsegmental atelectasis particularly in the left lower lobe cannot be excluded. IMPRESSION: Subsegmental atelectasis. Electronically signed by Angel Laboy 11/01/2018 8:03 AM
[2018-11-01 08:12] LABS: INR 1.14; PROTIME 15.5 Seconds (11.0-16.0)
[2018-11-01 08:13] LABS: PTT 35.7 Seconds (22.3-41.8)
[2018-11-01] MEDS: NAMENDA PO SCH ×2 (08:16→21:24)
[2018-11-01] MEDS: ASPIRIN PO SCH (08:16)
[2018-11-01] MEDS: VITAMIN B-12 PO SCH (08:16)
[2018-11-01 08:21] LABS: AGAP 14; ALB/GLOB RATIO 1.8; ALBUMIN 3.3 g/dL (3.5-5.0); ALKALINE PHOSPHATASE 54 U/L (32-122); BUN 27 mg/dL (8-22); CALCIUM 8.2 mg/dL (8.8-10.2); CHLORIDE 103 mmol/L (98-107); COSMO 278; CREATININE 1.1 mg/dL (0.7-1.2); ESTIMATED GFR > 60; GLUCOSE 156 mg/dL (70-104); GOT 30 U/L (10-34); GPT 11 U/L (10-44); POTASSIUM 4.2 mmol/L (3.5-5.1); SODIUM 135 mmol/L (136-145); TCO2 18 mmol/L (25-35); TOTAL BILIRUBIN 0.77 mg/dL (0.20-1.00); TOTAL PROTEIN 5.1 g/dL (6.3-8.3)
[2018-11-01 08:41] LABS: URINE SOURCE CLEAN CATCH
[2018-11-01 08:47] LABS: BILIRUBIN URINE NEGATIVE (NEGATIVE); BLOOD URINE MODERATE (NEGATIVE); COLOR YELLOW; GLUCOSE URINE NEGATIVE (NEGATIVE); KETONE URINE NEGATIVE (NEGATIVE); LEUKOCYTES URINE TRACE (NEGATIVE); NITRITE URINE NEGATIVE (NEGATIVE); PH URINE 5.5; PROTEIN URINE 100 mg/dL (NEGATIVE); SP GRAVITY URINE 1.034; TURBIDITY URINE HAZY (CLEAR); UR EPITHELIAL CELLS <10 /HPF (<10); URINE BACTERIA NEGATIVE /HPF; UROBILINOGEN URINE NORMAL (NORMAL)
--- NOTE | 2018-11-01 09:10 | EKG Report ---
Test Performed on : 11/01/2018 09:00:30 AM Test Reason : CP Blood Pressure : / mmHG Vent. Rate : 092 BPM Atrial Rate : 092 BPM P-R Int : 172 ms QRS Dur : 072 ms QT Int : 344 ms P-R-T Axes : 034 -05 031 degrees QTc Int : 425 ms Sinus rhythm. with frequent premature ventricular complexes. Cannot rule out Anteroseptal infarct , age undetermined Abnormal ECG When compared with ECG of 30-OCT-2018 16:23, (Unconfirmed) premature ventricular complexes. are now present Confirmed by Jenna GILL, Jm Alfred ([id number]) on 11/01/2018 7:42:39 PM
--- NOTE | 2018-11-01 09:30 | INFECTIOUS DISEASE CONSULT REP ---
DATE: 11/01/2018 CONCLUSION: The patient has a gram-negative kristy urinary tract infection, which I think is associated with the patient's gram-negative kristy bacteremia. In addition on CT scan, the patient appears to have a pneumonia, which I think most likely is hematogenous in nature from the patient's bacteremia. Also, the patient has metal in his right ankle from a fracture he suffered and the right ankle may have become infected hematogenously also. The patient in 1 of 2 blood cultures has a gram-positive coccus. I think most likely this will turner in to be a contaminant due to staph such as Staph epidermidis, but I cannot rule out for sure that it would not be a pathogen such as Staph aureus. The patient's gram-negative kristy bacteremia also hematogenously could involve the patient's right ankle that has metal in it. RECOMMENDATIONS: I am going to discontinue the current antibiotics and go ahead and put the patient on cefepime. Also, since the patient has a gram-positive coccus in 1 of his blood cultures, I will go ahead and put the patient on daptomycin as well. DISCUSSION: The patient in the past 2 days has had shaking chills and fever. He also had decreased urine output. His blood cultures show gram-negative kristy in both sets and one set had a gram-positive coccus. The patient's urine also is growing a gram-negative kristy. The patient's CBC shows a white count of 4630, hemoglobin 13.5, and platelet count 64,000. Creatinine is 1.1 and GFR is greater than 60. Liver function studies are normal. CT scan of the chest shows the presence of pneumonia and CT scan of the abdomen and pelvis shows an enlarged prostate. PAST MEDICAL HISTORY/REVIEW OF SYSTEMS: Eyes and Ears: The patient has decreased hearing. His vision is okay. Neck: No stiffness. Respiratory: No cough or dyspnea. Cardiac: No chest pain or palpitations. Gastrointestinal: No nausea, vomiting, or diarrhea. Genitourinary: As mentioned above, the patient had decrease in his urine output, but he did not complain of dysuria or flank pain. Endocrine: The patient does not have diabetes or thyroid disease. Bones, joints, muscles: The patient does not have any swollen joints or muscle aches currently. PREVIOUS HOSPITALIZATIONS AND OPERATIONS: He has had admissions for myocardial infarction. He has had a right ankle fracture, which was surgically treated and he has a metal plate in place. 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 He has also had shrapnel wounds in his chest. MEDICAL DISEASES: Positive for benign prostatic hypertrophy and renal calculi. INFECTIOUS DISEASE HISTORY: Negative for pneumonia and UTI. FAMILY HISTORY: Positive for diabetes mellitus, hypertension, and myocardial infarction. SOCIAL HISTORY: [place] He is . He has a dog as a pet. He is retired. He was a public service officer. He does not smoke cigarettes, drink alcoholic beverages, or abuse drugs. PHYSICAL EXAMINATION: Vital Signs: Temperature 99.2 degrees, pulse 82, respirations 12, blood pressure 101/53. General: This is a obese, but otherwise fairly healthy-appearing, elderly male. He is in no acute distress. Head, eyes, ears, nose, and throat: He can hear my spoken words and see near objects. He does not have any white coating on his tongue. Neck: No meningismus. Lungs: Clear to auscultation. Cardiovascular: Regular heart rate. Abdomen and Flanks: Soft and nontender. Neurologic: The patient is alert. He can move his extremities. There is no tremor. His sensation is intact to touch. His memory as regarding his medical history is intact. Integument: No rash noted. Thank you for the consult. cc: [place] MD
[2018-11-01 09:52] LABS: CK INDEX 1.4 (0.0-2.5); CK-MB 6.37 ng/mL (0.0-5.0)
[2018-11-01] MEDS: CUBICIN 500 MG in NS 100 ML IV SCH (09:58)
--- NOTE | 2018-11-01 10:22 | Carotid Study ---
DATE: 10/30/2018 PROCEDURE: Bilateral duplex and color flow imaging of the carotid arteries performed using a GE Vivid E9 ultrasound system with a 9L-D transducer. REFERRING PHYSICIAN: Dr. Wayne. INTERPRETING PHYSICIAN: Raina Shah MD. TECH: Yanick Gillis Tima. INDICATIONS: Transient ischemic attack. OBSERVED DATA RIGHT LEFT Brachial Blood Pressure Carotid Pulse Bruits: Carotid/Sub DIAGRAM OF ULTRASOUND IMAGING R L RIGHT INT EXT INT EXT LEFT Dominick (cm/s) Dominick (cm/s) Subclavian 150/0 Subclavian 97/0 CCA Proximal 103/14 CCA Proximal 92/15 CCA Distal 73/11 CCA Distal 88/12 Bulb 70/11 Bulb 80/13 ICA Proximal 52/8 ICA Proximal 67/20 ICA Mid 70/18 ICA Mid 65/15 ICA Distal 60/17 ICA Distal 67/19 ECA 109/0 ECA 85/7 Vertebral 57/10 Vertebral 44/6 ICA/CCA Ratio 0.67 ICA/CCA Ratio 0.73 % Stenosis 0-39 % Stenosis 0-39 PHYSICIAN INTERPRETATION: Mild atherosclerotic disease at the distal common and internal carotid arteries bilaterally without evidence of a hemodynamically significant lesion in either carotid system. cc: Raina Shah MD
--- NOTE | 2018-11-01 13:24 | PROGRESS NOTE ---
DATE: 11/01/2018 SUBJECTIVE: Mr. Gupta reports some hard shaking chills overnight associated with temperature elevation. During the time, he was miserable and had a sense that he could not speak fluently. Overall, that seems to be very similar to what happened on the bus prior to admission. There was not clear focal neurologic feature. There was not a definite language deficit. There was no altered consciousness or altered awareness. OBJECTIVE: Neurologically, he continues to be intact. ASSESSMENT AND PLAN: I do not think with have to do anything further from neurologic standpoint. I am optimistic that he will feel better with continued treatment for his bacteremia. He will have Neurology followup with Dr. Nicholas in [place] after discharge. Thanks for asking Neurology to see Mr. Gupta. cc: Vannessa Tate III, MD [facility]
[2018-11-01] MEDS: LEVAQUIN 500 MG/D5W 500 MG/100 ML IVPB IV SCH (16:34)
--- NOTE | 2018-11-01 20:44 | PROGRESS NOTE ---
DATE: 11/01/2018 SUBJECTIVE: This morning Mr. Gupta refers to be doing a lot better. However, he did say he had an episode of chills, fever yesterday. He also did have an episode where he became urinary retained, so he had to be in and out cath and he did pass urine stones yesterday. This morning, however, he refers to be doing okay. He has been able to void on his own twice and he has been able to empty his bowels. OBJECTIVE: Vital Signs: Blood pressure is 121/64, pulse is 81, respirations 20 , temperature 99.3, patient has a T-max of 102.5 this morning at 0429. General: Mr. Gupta is a 78-year-old gentleman. He is in bed. He was not in any cardiopulmonary distress. HEENT: Mucosa is pink and moist. Anicteric. Acyanotic. Neck: Supple. Chest: Good air entry bilaterally. There were no crepitations, no rhonchi. Cardiovascular: Regular rate and rhythm. No murmurs, no rubs, no gallops. Gastrointestinal: Abdomen was soft, distended, but nontender. Bowel sounds are present. There was no hepatosplenomegaly and there was no CVA tenderness. Extremities: No pedal edema. Distal pulses present. Central Nervous System: Patient was awake , alert, oriented. There is no focal neurological deficit. LABORATORY DATA: WBC is 4.62, hemoglobin is 13.5, platelet count went down to 64,000. Fibrinogen is up to 116. Chemistry has been reviewed. Sodium is 135, potassium is 4.2, chloride is 100, bicarb is 18, BUN was 27. Troponin has gone up to 0.340. An EKG which was done this morning did show normal sinus rhythm with a rate of about 92, some occasional PVCs, but no ST segment abnormalities. The patient denies any chest pain. The urine culture has come back to be Citrobacter koseri, which is pansensitive. The blood culture #1 is gram-negative kristy. The other one which was initially reported as gram-negative kristy has now been reported as gram-positive cocci. ASSESSMENT: 1. Septic shock. The patient responded to IV fluids. No need for pressors. He is currently on IV antibiotics. 2. Gram-negative bacteremia. This was 2/2 yesterday this morning. One of the blood cultures has been reported as gram-positive cocci. We are still waiting on the ID and sensitivity. 3. Right upper lobe pneumonia. Patient's antibiotics have been changed to Levaquin and daptomycin hopefully for the bacteremia of the gram-positive cocci. 4. Mild constipation, improved. 5. History of benign prostatic hypertrophy. No obstructive uropathy seen on imaging studies. We will start the patient on Flomax. 6. Kidney stones. The patient has passed two of these. They were sent for pathology. We are still awaiting for the stone analysis. 7. Elevated troponin. The patient is asymptomatic of any chest pain and EKGs were also unremarkable. We are going to trend this and repeat his EKG. Please also refer to the other details of progress note from the medical student. cc: Wilfrid Acosta MD MTDD
[2018-11-01] MEDS: LIPITOR PO SCH (21:24)
[2018-11-01] MEDS: COENZYME Q10 PO SCH (21:24)
[2018-11-01] MEDS: PATIENT'S OWN MED PO SCH (21:27)
[2018-11-02] MEDS: NS 1,000 ML IV SCH ×3 (02:15→15:46)
[2018-11-02] MEDS: DUONEB (A & A) INH SCH ×6 (03:02→23:00)
[2018-11-02 06:00] LABS: EOS% 1.6 % (0.0-10.0); HEMATOCRIT 38.3 % (42.0-52.0); HEMOGLOBIN 12.9 g/dL (14.0-18.0); LYMPH# 0.34 X1000 (1.2-3.4); LYMPH% 5.6 % (20.5-51.1); MCH 32.4 PG (27-31); MCHC 33.7 g/dL (33-37); MCV 96.2 FL (81-99); MONO# 0.49 X1000 (0.11-0.59); MPV 11.1 FL (7.4-10.4); NEUT# 5.19 X1000 (1.4-6.5); NEUT% 84.8 % (42.2-75.2); PLT 71 X1000 (130-400); RBC 3.98 XMIL (4.7-6.1); RDW 12.5 % (11.5-14.5); WBC 6.12 X1000 (4.8-10.8)
[2018-11-02 06:19] LABS: AGAP 10; BUN 16 mg/dL (8-22); CALCIUM 8.4 mg/dL (8.8-10.2); CHLORIDE 105 mmol/L (98-107); COSMO 279; CREATININE 0.9 mg/dL (0.7-1.2); ESTIMATED GFR > 60; GLUCOSE 128 mg/dL (70-104); MAGNESIUM 1.7 mg/dL (1.5-2.7); POTASSIUM 4.4 mmol/L (3.5-5.1); SODIUM 138 mmol/L (136-145); TCO2 23 mmol/L (25-35)
[2018-11-02] MEDS: VITAMIN B-12 PO SCH (09:26)
[2018-11-02] MEDS: ZEBETA PO SCH (09:27)
[2018-11-02] MEDS: NAMENDA PO SCH ×2 (09:27→20:32)
[2018-11-02] MEDS: ASPIRIN PO SCH (09:27)
[2018-11-02] MEDS: CUBICIN 500 MG in NS 100 ML IV SCH (09:28)
--- NOTE | 2018-11-02 11:07 | INFECTIOUS DISEASE PROGRESS NO ---
DATE: 11/02/2018 PRESENT ILLNESS: Mr. Gupta has a Citrobacter koseri urinary tract infection with an associated bacteremia. Also noted on CT scan, is a mild, right-sided pneumonia. MEDICATIONS: He is receiving Levaquin 500 mg IV daily. He has also been on daptomycin 500 mg IV daily for a possible gram-positive coccus; however, this has been discontinued because the gram- positive coccus notation was incorrect and it was a gram-negative kristy. PHYSICAL EXAMINATION: Vital signs: Temp is 98.7, pulse rate 79, respiratory rate 20, blood pressure 132/64. O2 sat is 95% on room air. General: This is a chronically- ill appearing, elderly gentleman. He is lying in the bed in no acute distress. HEENT: Atraumatic, normocephalic. Oral mucous membranes are pink and moist. Conjunctivae are pink. Neck: Supple. Trachea is midline. Respiratory: Lung sounds are generally clear and diminished bilaterally. Cardiovascular: Heart rate and rhythm is irregular, underlying sinus rhythm with frequent ectopic beats. Pedal and radial pulses are +2 bilaterally. He does have a 1+ pretibial edema bilaterally. Abdomen: Soft, obese, and nontender. Bowel sounds are active. Neurologic: He is awake , alert, and oriented, able to ambulate with some mild weakness. LABORATORY AND X-RAY: Today's white count is 6.12, hemoglobin 12.9, platelet count 71,000. Creatinine is 0.9. Estimated GFR is greater than 60. His most recent urine culture has shown no growth on the preliminary report. Previous urine and blood cultures have grown a Citrobacter koseri. No imaging reports today. ASSESSMENT AND PLAN: Mr. Gupta has a Citrobacter koseri urinary tract infection with an associated bacteremia. There is also a mild right-sided pneumonia. At one point , there was what looked like a gram-positive coccus that was growing. However, that turned out to be a gram- negative kristy, so we have discontinued the daptomycin. The patient is feeling a lot better today on the Levaquin, which we will continue at this point. I have called and spoken to the orthopedic center in [place], where he previously had his right ankle surgery, and they have assured me that there is no metal in his ankle at this point. Since there are no other implants or metal, he will only need 2 weeks of treatment for his bacteremia. Day one will be the first day of negative blood cultures which we will go ahead and draw in the morning. These plans have been discussed with and recommended by Dr. Arce. COMORBIDITIES: Comorbidities for Mr. Gupta include he is elderly with BPH and renal calculi, bipolar disorder, dementia, and coronary artery disease. Dictated by BELKYS Almaguer for South Arce MD This chart was documented by, BELKYS Almaguer and accurately reflects the services performed, treatment plan and medical decisions as attested by the providers signature South Arce MD. cc: South Arce MD MTDD
[2018-11-02] MEDS: LEVAQUIN 500 MG/D5W 500 MG/100 ML IVPB IV SCH (15:41)
--- NOTE | 2018-11-02 17:47 | PROGRESS NOTE ---
DATE: 11/02/2018 SUBJECTIVE: This morning, Mr. Gupta refers to be doing a whole lot better. No more chills. No fever. No chest pain. No abdominal pain and he has not passed any more urinary stones. OBJECTIVE: Vital signs: Blood pressure is 128/72, pulse is 71 respiration is 20, temperature is 98.4 degrees. Patient's T-max 99.3 degrees. General Exam: Mr. Gupta is 78-year-old male. He is in bed. He is not in any cardiopulmonary distress. HEENT: Mucosa was pink and moist. Anicteric. Acyanotic. Neck: Supple. Chest: Good air entry bilateral. There are no crepitations. No rhonchi. Cardiovascular: Regular rate and rhythm. There are no murmurs, no rubs, no gallops. Abdomen: Soft. Distended, but nontender. Bowel sounds present. There is no hepatosplenomegaly. Central nervous system: The patient is awake, alert, and oriented. There is no focal neurological deficit. Extremities: No pedal edema. Distal pulses present. LABORATORY DATA: WBC is 6.12, hemoglobin is 12.9, platelet count of 71,000. Chemistry is also reviewed and is completely unremarkable. ASSESSMENT: 1. Septic shock on presentation. Patient responded well to intravenous fluid. There was no need for pressors. Currently on intravenous Levaquin, which will be transitioned to oral. 2. Citrobacter urinary tract infection with bacteremia. Subsequent blood culture is still pending. 3. Some mild constipation, improved. 4. History of benign prostatic hypertrophy. Imaging studies show no obstructive uropathy. The patient is currently on Flomax. 5. Kidney stones. The patient did passed 2 of these 3 days ago. 6. Elevated troponins. This is going down. The patient's EKGs have been unremarkable and echocardiogram shows a normal ejection fraction with normal wall motion. However, the patient's CT scan does show a remarkable dense calcification of the left anterior descending and it is very possible that the elevated troponins could be demand ischemia. A true underlying coronary artery disease in the left anterior descending could be possible. I will get Cardiology to evaluate the patient before we discharge him tomorrow. cc: Wilfrid Acosta MD
[2018-11-02] MEDS: COENZYME Q10 PO SCH (20:30)
[2018-11-02] MEDS: FERROUS SULFATE PO SCH (20:31)
[2018-11-02] MEDS: PATIENT'S OWN MED PO SCH (20:31)
[2018-11-02] MEDS: FOLIC ACID PO SCH (20:32)
[2018-11-02] MEDS: LIPITOR PO SCH (20:32)
[2018-11-02] MEDS: TYLENOL PO PRN (22:44)
[2018-11-03] MEDS: DUONEB (A & A) INH SCH ×2 (03:27→07:43)
[2018-11-03 07:00] LABS: AGAP 9; BUN 14 mg/dL (8-22); CHLORIDE 105 mmol/L (98-107); COSMO 281; ESTIMATED GFR > 60; GLUCOSE 116 mg/dL (70-104); MAGNESIUM 1.8 mg/dL (1.5-2.7); POTASSIUM 4.3 mmol/L (3.5-5.1); SODIUM 140 mmol/L (136-145); TCO2 26 mmol/L (25-35)
[2018-11-03 07:40] VITALS: BP 135/71
[2018-11-03] MEDS: ZEBETA PO SCH (08:03)
[2018-11-03] MEDS: ASPIRIN PO SCH (08:08)
[2018-11-03] MEDS: NAMENDA PO SCH (08:08)
[2018-11-03] MEDS: FOLIC ACID PO SCH (08:08)
[2018-11-03] MEDS: FERROUS SULFATE PO SCH (08:08)
[2018-11-03] MEDS: TYLENOL PO PRN (08:08)
[2018-11-03] MEDS: VITAMIN B-12 PO SCH (08:08)
--- NOTE | 2018-11-03 20:06 | DISCHARGE SUMMARY ---
ADMISSION DATE: 10/30/2018 DISCHARGE DATE: 11/03/2018 DISPOSITION: Home. FOLLOW-UP: 1. Dr. Juan Alberto Keating. 2. Dr. Arce. 3. Dr. Sampson in [place]. 4. Dr. Jesus Nicholas. CONSULTATIONS DURING THIS ADMISSION: Neurology was consulted. Patient was seen by Dr. Tate. ID was consulted. Patient was seen by Dr. Arce. INVASIVE PROCEDURES DONE DURING THIS ADMISSION: None. IMAGING STUDIES OF SIGNIFICANCE: Carotid Doppler was done, which was negative for any critical stenosis. Echocardiogram revealed ejection fraction of 60%. No wall motion abnormality was noted. CT of the chest, abdomen, and pelvis showed mild right upper and lower lobe pneumonia, multiple nonspecific pulmonary nodules, mild constipation, and large prostate. MRI of the brain showed no evidence of intracranial pathology. MRA showed some poor visualization. ADMISSION DIAGNOSES: 1. Probably sepsis. 2. Right basilar infiltrate. 3. Transient ischemic attack. 4. Dementia. DIAGNOSIS AT THE TIME OF DISCHARGE: 1. Septic shock on presentation. 2. Citrobacter urinary tract infection (UTI) with bacteremia. 3. Mild constipation. 4. Altered mental status on presentation secondary to infectious encephalopathy , improved. 5. Kidney stones. 6. History of BPH. Imaging studies showed no obstructive uropathy. The patient prefers to follow up with his urologist. 7. Elevated troponins concerning for eye-QO-mtjrhvipt myocardial infarction (non -STEMI) versus demand ischemia. The patient did not have any chest pain. The EKGs were unremarkable. He has been advised to follow up with his [facility], Dr. Sampson for further cardiac risk stratification. The patient is advised to do this within a week. 8. History of coronary artery disease status post stent in the past. The patient follows up with Dr. Sampson. We have started him back on his home medications. 9. History of mild dementia. Noted. 10. 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 The patient follows up with urologist. 11. Bipolar disorder. 12. Folate deficiency. Will replace. 13. Iron deficiency. Will replace. DISCHARGE MEDICATIONS: 1. Aspirin 81 mg daily. 2. Memantine 10 mg b.i.d. 3. Atorvastatin 20 mg p.o. at bedtime. 4. Bisoprolol 2.5 p.o. daily. 5. Cyanocobalamin tablet 1000 mcg daily. 6. Lisinopril 10 mg daily. 7. Oxcarbazepine 600 p.o. at bedtime. 8. Levofloxacin 500 p.o. daily. 9. Folic acid 1 mg b.i.d. 10. Iron sulfate 325 b.i.d. 11. Colace 1 tablet daily. PRESENTING COMPLAINT: Weakness, rigors, altered mental status. HISTORY OF PRESENTING COMPLAINT: Mr. Holbrook is a 78-year-old gentleman, who presented to the emergency department because of acute onset of rigors and altered mental status and high temperature. Upon presenting, the patient was evaluated. Initial CT of the head was unremarkable. A chest x-ray suggested possibility of his right basilar infiltrate. The patient was initially admitted for pneumonia and was started on antibiotics. HOSPITAL COURSE: The patient was adequately hydrated. Cultures were done. The blood cultures and urine culture both came back positive for Citrobacter koseri. The patient does have history of BPH and urinary incontinence, so I think that is where the predisposition for UTI came from. Mr. Gupta continued to improve during the hospital course on antibiotics. Unfortunately, on the 2nd night, he did have another episode of rigors, chills, and some chest discomfort. At the time, his troponin was checked, which was elevated. Throughout the hospital course, he denied any further chest pain. Multiple EKGs were done, which did not show any acute changes. At one point, we had consulted Cardiology to see him. However, his troponin got normalized. He did not have any chest pain, and because all EKGs were normal, he prefers to go and see his [facility] in [place]. This morning, Mr. Gupta referred to be doing a whole lot better. He has been seen by ID. Dr. Arce has changed his IV antibiotics to p.o. Levaquin, and he will follow up with him in about 2 weeks. All the discharge instructions have been discussed with Mr. Gupta and the , who was at the bedside at the time of the encounter. COORDINATION TIME: Time spent for discharge is 37 minutes. cc: MD Juan Alberto Figueroa MD Leroy F. Harris, MD Scott Hitchcock Sean Groark, MD MTDD
== END 2018-11-03 11:22 | disposition home or self-care (01) | DRG 871 ==
LOC: ED 16:15 → 4N 21:20
PROVIDERS: ATTEND Internal Medicine
CPT/HCPCS: 70450; 70544; 70553; 71010; 71045; 71260; 74177; 80048; 80053; 80061; 80164; 80165; 80307; 80342; 81001; 82360; 82542; 82550; 82553; 82607; 82728; 82746; 82805; 82948; 83540; 83550; 83605; 83721; 83735; 84153; 84443; 84484; 85025; 85384; 85610; 85730; 87040; 87070; 87077; 87088; 87186; 87205; 87275; 87276; 87804; 88300; 92523; 93005; 93010; 93306; 93880; 94640; 94761; 94762; 94799; 96365; 96367; 97162; 97530; 99285; A9270; A9579; G0103; G0480; G6057; J0456; J0696; J0878; J1885; J1956; J2175; J2405; J7030; J7040; Q9967; XXXXX